=== PATIENT | male | born 1960 ===

== ENCOUNTER 2016-08-05 07:57 | Emergency (ER) | payer OTHER ==
[2016-08-05] MEDS ORDERED: Naproxen 500 MG TAB PO STA (08:08)
--- NOTE | 2016-08-05 08:10 | ED PDOC ---
Lower Extremity Pain/Injury Time Seen by Provider: 08/05/16 08:02 Chief Complaint (Nursing): Lower Extremity Problem/Injury Chief Complaint (Provider): right knee pain History Per: Patient History/Exam Limitations: no limitations Onset/Duration Of Symptoms: Days (x 3) Current Symptoms Are (Timing): Still Present Additional Complaint(s): Gerry Dejesus is a 56 year old male, with no previous medical history, who presents to the ED with pain to the right knee ongoing for 3 days secondary to injuring his knee while pushing a cart. Patient states pain with bending and ambulating. PMD: none provided Past Medical History Reviewed: Historical Data, Nursing Documentation, Vital Signs Vital Signs: Last Vital Signs Temp 97.0 F L 08/05/16 08:05 Pulse 64 08/05/16 08:05 Resp 18 08/05/16 08:05 BP 164/92 H 08/05/16 08:05 Pulse Ox 99 08/05/16 08:05 - Medical History PMH: No Chronic Diseases - Family History Family History: States: Unknown Family Hx - Home Medications Home Medications: Ambulatory Orders Medication Instructions Recorded Naproxen [Naprosyn] 500 mg PO Q12H #20 tab 08/05/16 - Allergies Allergies/Adverse Reactions: Allergies Allergy/AdvReac Type Severity Reaction Status Date / Time No Known Allergies Allergy Verified 08/05/16 08:05 Review of Systems ROS Statement: Except As Marked, All Systems Reviewed And Found Negative Musculoskeletal: Positive for: Leg Pain (right knee pain ) Physical Exam - Reviewed Nursing Documentation Reviewed: Yes Vital Signs Reviewed: Yes - Physical Exam Appears: Positive for: Well, Non-toxic, No Acute Distress Cardiovascular/Chest: Positive for: Regular Rate, Rhythm Respiratory: Positive for: CNT, Normal Breath Sounds Pulses-Dorsalis Pedis (R): 2+ Extremity: Positive for: Normal ROM, Capillary Refill (< 2 seconds ), Swelling ( mild to the right knee ). Negative for: Calf Tenderness, Deformity, Other ( crepitus, instability, erythema ) Neurologic/Psych: Positive for: Alert, Oriented - ECG O2 Sat by Pulse Oximetry: 99 (RA) Pulse Ox Interpretation: Normal Medical Decision Making Medical Decision Making: Initial Impression: Right knee pain Initial Plan: * x-ray right knee * naproxen * reevaluation Scribe Attestation: Documented by Arabella Martinez, acting as a scribe for Russell Cruz MD. Provider Scribe Attestation: All medical record entries made by the Scribe were at my direction and personally dictated by me. I have reviewed the chart and agree that the record accurately reflects my personal performance of the history, physical exam, medical decision making, and the department course for this patient. I have also personally directed, reviewed, and agree with the discharge instructions and disposition. Disposition - Clinical Impression Clinical Impression: Knee sprain - Patient ED Disposition Is Patient to be Admitted: No Counseled Patient/Family Regarding: Studies Performed, Diagnosis, Need For Followup, Rx Given - Disposition Referrals: Rehana Matt MD [Staff Provider] - Disposition: Routine/Home Disposition Time: 09:10 Condition: FAIR Prescriptions: Naproxen [Naprosyn] 500 mg PO Q12H #20 tab Instructions: Knee Sprain (ED)
[2016-08-05 08:14] VITALS: TEMP 97
[2016-08-05] MEDS ORDERED: Naproxen 500 MG TAB PO ONE (08:17)
--- NOTE | 2016-08-05 09:28 | RAD ---
PROCEDURE: Right Knee Radiographs. HISTORY: Posttraumatic pain. COMPARISON: None. FINDINGS: BONES: No acute fractures. Proliferative hypertrophic changes emanating from the femoral condyle and tibial plateau JOINTS: Mild degenerative changes. Evidence of chondrocalcinosis common normal variant. JOINT EFFUSION: None. OTHER FINDINGS: None. IMPRESSION: No acute findings related to/accounting for the clinical presentation. Additional benign and/or incidental findings described above.
[2016-08-05 10:19] VITALS: BP 142/75; PULSE 75; RESP 16; O2SAT 100
== END 2016-08-05 10:16 | disposition home or self-care (01) ==
LOC: H.ER 07:57
DX: M25.561 Pain in right knee (principal); X50.9XXA Other and unspecified overexertion or strenuous movements or postures, initial encounter; Y99.0 Civilian activity done for income or pay